=== PATIENT | female | born 1940 | race Caucasian/White ===

== ENCOUNTER 2019-04-15 21:22 | Inpatient (IN) ==
--- OUTSIDE RECORDS SUMMARY | 2019-04-15 21:24 | External Medical Summary | Continuity of Care Document ---
:1940 Author Name Ricardo Mendez Address Unavailable Unavailable , Care Team Providers Name Role Phone Cristy Wills M.D. Unavailable [email or web address] [place] Unavailable Unavailable Assessments Assessed Problems:Cystocele, midlineUterine prolapseArthritisHypertension Hypercholesterolemia Problems Hypercholesterolemia (272.0) (E78.00) Hypertension (401.9) (I10) Arthritis (716.90) (M19.90) Uterine prolapse (618.1) (N81.4) Cystocele, midline (618.01) (N81.11) Allergies and Adverse Reactions No Known Drug Allergies (Allergy) Medications Metoprolol Tartrate 50 MG Oral Tablet Refills: 0 amLODIPine Besylate 5 MG Oral Tablet Refills: 0 Losartan Potassium 100 MG Oral Tablet Refills: 0 Simvastatin 40 MG Oral Tablet Refills: 0 Evista 60 MG Oral Tablet Refills: 0 Procedures History of cataract surgery Status: Comp leted Immunizations Immunizations not documented Family History Mother Family history of cardiac disorder (V17.49) (Z82.49) Status: Active Father Family history of gastric ulcer (V18.59) (Z83.79) Status: Ac tive Sister Family history of malignant neoplasm of breast (V16.3) (Z80. 3) Status: Active natural daughter Family history of malignant melanoma (V16.8) (Z80.8) Status: Active Family history of Status: Active Social History - Smoking Status Never smoker Plan of Treatment Planned Observations Planned Goals not documented Results No Known Results Results not documented Encounters Appointment; Rita Wills M.D. 03-Aug-2017 13:00 Encounter Diagnosis: Problem not documented
[2019-04-15] MEDS ORDERED: SODIUM CHLORIDE 0.9% 500 ML IV ONE (21:34)
[2019-04-15] MEDS ORDERED: DIPHTHERIA/TETANUS/PERTUSSIS 0.5 ML SYR/VIAL IM ONE (21:34)
[2019-04-15] MEDS ORDERED: PIPERACILLIN/TAZOBACTAM 4.5 GM/120 ML BAG IV ONE (21:45)
[2019-04-15] MEDS ORDERED: PIPERACILL/TAZOBAC CONSULT ACTIVE PRN (21:45)
--- NOTE | 2019-04-15 21:50 | Emergency Department Note ---
ED Visit Note Physician Evaluation Note: I have personally evaluated and examined this patient. I agree with assessment and plan of Monet Ray PA-C. Left hand swelling consistent with infection after being on Amox for the previous week. She was bitten by cat on left forearm. She has unknown last tetanus which will be updated. Labs, imaging o rdered/reviewed. Zosyn started and hospitalist consulted. Tate Kauffman MD
[2019-04-15 22:14] LABS: Basophils # (auto) 0.04 K/uL (0-0.2); Basophils % (auto) 0.3 %; Eosinophils # (auto) 0.08 K/uL (0-0.5); Eosinophils % (auto) 0.6 %; Hematocrit (blood only) 35.7 % (37-47); Hemoglobin 12.4 g/dL (12.0-16.0); Immature Granulocytes # (auto) 0.09 K/uL (0.00-0.02); Immature Granulocytes % (auto) 0.7 %; Lymphocytes # (auto) 1.08 K/uL (1.2-3.4); Lymphocytes % (auto) 8.3 %; Mean Corpuscular Hgb Conc 34.7 g/dL (32-36); Mean Corpuscular Volume 92.5 fL (80-100); Mean Platelet Volume 9.4 fL (7.4-10.4); Monocytes # (auto) 1.37 K/uL (0.11-0.59); Monocytes % (auto) 10.6 %; Neutrophils # (auto) 10.29 K/uL (1.4-6.5); Neutrophils % (auto) 79.5 %; Platelet Count 234 K/uL (130-400); RDW Coefficient of Variation 13.1 % (11.5-14.5); RDW Standard Deviation 44.2 fL (36.4-46.3); Red Blood Count 3.86 M/uL (4.2-5.4); White Blood Count 12.95 K/uL (4.8-10.8)
--- NOTE | 2019-04-15 22:24 | Emergency Department Note ---
History of Present Illness General Chief complaint: Hand Injury/Pain Stated complaint: SWOLLEN L HAND History of Present Illness Maximum Pain Intensity: 6 This 78-year-old presents to the ER complaining of left hand pain and swelling Location: Left hand Quality: Throbbing Severity: Moderate Duration: Past few days Timing: Started few days ago after getting scratched and bitten by her cat Context: Pain and redness spread and patient was concerned and came in Modifying factors: better with nothing; worse with activity Patient states her cat excellently scratched and bit her the other day. She states since then the hand is become more red swollen and painful. She has red streaking up the arm. Patient denies of subjective fever and chills. Tetanus is out of date she believes. Patient states she is healthy with no active medical problems. Patient denies chest pain, dyspnea, headache, body aches. Patient also has been working in her garden this week. Home Medications Home Medications Medication Instructions Recorded Confirmed Type amlodipine 5 mg PO QAM 04/15/19 04/15/19 History amoxicillin 500 mg PO TID 04/15/19 04/15/19 History calcium carbonate-vitamin D3 1 cap PO QAM 04/15/19 04/15/19 History [Calcium 600 + D(3)] diphenhydramine-acetaminophen 1 tab PO HS PRN 04/15/19 04/15/19 History [Tylenol PM Extra Strength] losartan 100 mg PO QAM 04/15/19 04/15/19 History metoprolol succinate 25 mg PO HS 04/15/19 04/15/19 History multivit with min-folic acid 200 mcg PO QAM 04/15/19 04/15/19 History [One-A-Day VitaCraves] omega 0-fqd-rus-fish oil [Doerun-3] 1 cap PO QAM 04/15/19 04/15/19 History raloxifene 60 mg PO DAILY 04/15/19 04/15/19 History simvastatin 40 mg PO HS 04/15/19 04/15/19 History Allergies Allergy/AdvReac Type Severity Reaction Status Date / Time No Known Allergies Allergy Unverified 04/15/19 21:38 Past Med/Surg History Medical History No acute medical problems Social History Feels Safe at Home: Yes Smoking Status: Never smoker Review of Systems All systems reviewed & are unremarkable except as noted in HPI & below Physical Exam Vital Signs Vital Signs - 24 hr 04/15/19 21:24 04/15/19 23:01 Temperature 37.4 C Temperature Source Oral Sepsis Recent Fever Within 48 Hours No Sepsis Action Taken by Nursing No Action Required Pulse Rate 116 H Pulse Rate [Finger] 81 Respiratory Rate 18 18 Respiratory Effort / Characteristics Non-Labored Spontaneous Respiratory Depth Normal Respiratory Pattern Regular Blood Pressure 149/82 H Blood Pressure [Left Arm] 124/69 Blood Pressure Mean 104 Blood Pressure Mean [Left Arm] 87 Blood Pressure Position Sitting Pulse Oximetry 94 92 Oxygen Delivery Method Room Air Room Air VITALS: Vitals are noted on the nurse's note and reviewed by myself. Vital signs tachycardic. GENERAL: Pleasant female, in no acute distress, nondiaphoretic, well-developed well-nourished. Skin: The left hand is erythematous and edematous with lymphangitis up to the left AC, scratch brisa to the distal left forearm, the rest of the skin was without rashes, erythema, edema, or bruising. There is no tenting of the skin. Capillary reflex less than 2 seconds. HEAD: Normocephalic atraumatic. EARS: External auditory canals clear EYES: Pupils equal round and reactive to light and accommodation. Conjunctivae without injection, sclerae without icterus. Extraocular movements intact. NOSE: Patent, turbinates without inflammation or discharge. MOUTH: Mucous membranes moist. Pharynx without erythema or exudate. Uvula midline. Airway patent. Tongue does not deviate. NECK: Supple without nuchal rigidity. No lymphadenopathy. No thyromegaly. Cervical spine is nontender. No JVD. HEART: Regular rate and rhythm LUNGS: Clear to auscultation bilaterally without wheezes, rales or rhonchi. No retractions or accessory muscle use. ABDOMEN: Positive bowel sounds x 4. Normal tympanic percussion. Soft, nontender, without masses or organomegaly. Pendleton sign negative. No guarding or rebound tenderness. No CVA tenderness MUSCULOSKELETAL: No muscle atrophy noted. The left hand is warm that is erythematous and edematous with lymphangitis up to the left AC, scratch brisa to the distal left forearm. Left hand is diffusely minimally tender to palpation. Full range of motion of all fingers hand and wrist. Radial pulses +2 equal and present bilaterally. NEURO: Patient was alert and oriented to person place and time. Normal sensation to light and sharp touch. No focal neurological deficits. Course Administered Medications Discontinued Medications Diphtheria/Pertussis/Tetanus Vacc (Adacel) 0.5 ml IM .ONCE ONE Stop: 04/15/19 21:35 Last Admin: 04/15/19 22:22 Dose: 0.5 ml Documented by: [id number] Sodium Chloride (Nss) 500 mls @ 999 mls/hr IV .Q31M ONE Stop: 04/15/19 22:04 Last Infusion: 04/15/19 23:09 Dose: 0 mls/hr Documented by: [id number] Admin: 04/15/19 22:22 Dose: 999 mls/hr Documented by: [id number] Piperacillin Sod/Tazobactam Sod (Zosyn) 4.5 gm in 120 mls @ 240 mls/hr IV NOW ONE Stop: 04/15/19 22:14 Last Infusion: 04/15/19 23:04 Dose: 0 mls/hr Documented by: [id number] Admin: 04/15/19 22:22 Dose: 240 mls/hr Documented by: [id number] Medical Decision Making Medical Records Attestation: I reviewed the patient's medical records. Home Medications Current Medication List: was personally reviewed by me Laboratory Data Attestation: I reviewed the patient's lab results. Result diagrams: 04/15/19 21:54 04/15/19 21:54 Lab Results 04/15/19 04/15/19 04/15/19 Range/Units 21:54 21:54 21:54 WBC 12.95 H (4.8-10.8) K/uL RBC 3.86 L (4.2-5.4) M/uL Hgb 12.4 (12.0-16.0) g/dL Hct 35.7 L (37-47) % MCV 92.5 (80-100) fL MCH 32.1 (25-34) pg MCHC 34.7 (32-36) g/dL RDW Std Deviation 44.2 (36.4-46.3) fL RDW Coeff of Alisson 13.1 (11.5-14.5) % Plt Count 234 (130-400) K/uL MPV 9.4 (7.4-10.4) fL Immature Gran % (Auto) 0.7 % Neut % (Auto) 79.5 % Lymph % (Auto) 8.3 % Bertie % (Auto) 10.6 % Eos % (Auto) 0.6 % Baso % (Auto) 0.3 % Immature Gran # (Auto) 0.09 H (0.00-0.02) K/uL Neut # (Auto) 10.29 H (1.4-6.5) K/uL Lymph # (Auto) 1.08 L (1.2-3.4) K/uL Bertie # (Auto) 1.37 H (0.11-0.59) K/uL Eos # (Auto) 0.08 (0-0.5) K/uL Baso # (Auto) 0.04 (0-0.2) K/uL ESR 80 H (0-21) mm/hr Sodium 137 (136-145) mmol/L Potassium 3.8 (3.5-5.1) mmol/L Chloride 105 (98-107) mmol/L Carbon Dioxide 24 (21-32) mmol/L Anion Gap 8.0 (3-11) BUN 17 (7-18) mg/dl Creatinine 1.26 H (0.6-1.2) mg/dl Est Cr Clr Drug Dosing 29.1 ml/min Est GFR ( Amer) 47.3 Est GFR (Non-Af Amer) 40.8 BUN/Creatinine Ratio 13.7 (10-20) Glucose 174 H (70-99) mg/dl POC Lactic Acid Alvarez (0.90-1.70) mmol/L Calcium 8.7 (8.5-10.1) mg/dl Magnesium 2.1 (1.8-2.4) mg/dl Total Bilirubin 0.6 (0.2-1) mg/dl AST 60 H (15-37) U/L ALT 68 (12-78) U/L Alkaline Phosphatase 134 H (45-117) U/L C-Reactive Protein 16.80 H (0-0.29) mg/dl Total Protein 7.3 (6.4-8.2) gm/dl Albumin 3.0 L (3.4-5.0) gm/dl Globulin 4.3 H (2.5-4.0) gm/dl Albumin/Globulin Ratio 0.7 L (0.9-2) TSH 2.440 (0.300-4.500) uIu/ml Urine Color Urine Appearance (Clear) Urine pH (4.5-7.5) Ur Specific [place] (1.000-1.030) Urine Protein (Negative) Urine Glucose (UA) (Negative) Urine Ketones (Negative) Urine Blood (Negative) Urine Nitrite (Negative) Urine Bilirubin (Negative) Urine Urobilinogen (Negative) Ur Leukocyte Esterase (Negative) Urine WBC (Auto) (0-5) /hpf Urine RBC (Auto) (0-4) /hpf U Hyaline Cast (Auto) (0-5) /lpf U Epithel Cells (Auto) (0-5) /lpf Urine Bacteria (Auto) (Negative) 04/15/19 04/15/19 Range/Units 21:54 Unknown WBC (4.8-10.8) K/uL RBC (4.2-5.4) M/uL Hgb (12.0-16.0) g/dL Hct (37-47) % MCV (80-100) fL MCH (25-34) pg MCHC (32-36) g/dL RDW Std Deviation (36.4-46.3) fL RDW Coeff of Alisson (11.5-14.5) % Plt Count (130-400) K/uL MPV (7.4-10.4) fL Immature Gran % (Auto) % Neut % (Auto) % Lymph % (Auto) % Bertie % (Auto) % Eos % (Auto) % Baso % (Auto) % Immature Gran # (Auto) (0.00-0.02) K/uL Neut # (Auto) (1.4-6.5) K/uL Lymph # (Auto) (1.2-3.4) K/uL Bertie # (Auto) (0.11-0.59) K/uL Eos # (Auto) (0-0.5) K/uL Baso # (Auto) (0-0.2) K/uL ESR (0-21) mm/hr Sodium (136-145) mmol/L Potassium (3.5-5.1) mmol/L Chloride (98-107) mmol/L Carbon Dioxide (21-32) mmol/L Anion Gap (3-11) BUN (7-18) mg/dl Creatinine (0.6-1.2) mg/dl Est Cr Clr Drug Dosing ml/min Est GFR ( Amer) Est GFR (Non-Af Amer) BUN/Creatinine Ratio (10-20) Glucose (70-99) mg/dl POC Lactic Acid Alvarez 1.33 (0.90-1.70) mmol/L Calcium (8.5-10.1) mg/dl Magnesium (1.8-2.4) mg/dl Total Bilirubin (0.2-1) mg/dl AST (15-37) U/L ALT (12-78) U/L Alkaline Phosphatase (45-117) U/L C-Reactive Protein (0-0.29) mg/dl Total Protein (6.4-8.2) gm/dl Albumin (3.4-5.0) gm/dl Globulin (2.5-4.0) gm/dl Albumin/Globulin Ratio (0.9-2) TSH (0.300-4.500) uIu/ml Urine Color Yellow Urine Appearance Clear (Clear) Urine pH 5.0 (4.5-7.5) Ur Specific [place] 1.014 (1.000-1.030) Urine Protein Negative (Negative) Urine Glucose (UA) Negative (Negative) Urine Ketones Negative (Negative) Urine Blood Negative (Negative) Urine Nitrite Negative (Negative) Urine Bilirubin Negative (Negative) Urine Urobilinogen Negative (Negative) Ur Leukocyte Esterase Trace H (Negative) Urine WBC (Auto) 5-10 H (0-5) /hpf Urine RBC (Auto) 0-4 (0-4) /hpf U Hyaline Cast (Auto) 0 (0-5) /lpf U Epithel Cells (Auto) 10-20 H (0-5) /lpf Urine Bacteria (Auto) Negative (Negative) Imaging Data Attestation: I personally reviewed and interpreted this imaging study as follows: Blood Pressure Blood Pressure Findings: Elevated blood pressure Blood Pressure Disposition: Referred to patients primary care provider [facility] Narrative Prior records reviewed and summarized as above. Triage Nursing notes reviewed. Additional history obtained from family. The patient's history was concerning for swelling and redness of the skin. Differential diagnosis: Etiologies such as cat scratch disease, Pseudomonas, cellulitis, abscess, MRSA infection, DVT, necrotizing fasciitis, dermatitis, drug eruption, as well as others were entertained.. Physical examination: The physical examination was consistent with cellulitis ER treatment provided: Zosyn On reassessment the patient felt better. Diagnostics interpreted by me: The labs revealed leukocytosis, elevated inflammatory markers Imaging studies: XR hand LT min 3V routine CLINICAL HISTORY: pain/swelling pain COMPARISON: None. DISCUSSION: Considerable degenerative change of the interphalangeal as well as first carpometacarpal joint. No evidence for a lytic or blastic process. No evidence for posttraumatic bony change. Dorsal soft tissue edema. IMPRESSION: 1. Dorsal soft tissue edema. 2. Considerable degenerative change. 3. No acute bony normality. The above report was generated using voice recognition software. It may contain grammatical, syntax or spelling errors. Electronically signed by: Brisa Wellington M.D. 04/15/2019 10:22 PM US venous doppler UE LT HISTORY: Pain. Edema. pain/swelling COMPARISON STUDY: None. FINDINGS: The internal jugular vein is patent. There is normal flow within the subclavian vein. There is normal flow and compressibility within the left axillary, basilic, brachial, radial, ulnar, and visualized cephalic veins. IMPRESSION: No DVT within the upper extremity. The above report was generated using voice recognition software. It may contain grammatical, syntax or spelling errors. Electronically signed by: Brisa Wellington M.D. 04/15/2019 10:59 PM Consultation: A consultation was placed with Dr. Pololck hospitalist. The case was discussed and diagnostics were reviewed. The patient was evaluated in the ER for further treatment. This appears to be isolated cellulitis. This is quite extensive. Patient also has a history of cat scratch. Patient started broad-spectrum antibiotics. Patient had a leukocytosis and elevated inflammatory markers. Patient is agreeable treatment plan of admission. Tetanus is given. No elevation in lactic acid. By the evaluation outlined above emergent etiologies such as abscess, necrotizing fasciitis, DVT, as well as others were deemed relatively unlikely. The pt informed about the findings as listed above. All questions were answered and pleased with the treatment. Case reviewed with my attending The chart was completed utilizing [employer] voice recognition software. Grammatical errors, random word insertions, pronoun errors, and incomplete sentences are an occassional consequence of this system due to software limitations, ambient noise, and hardware issues. Any formal questions or concerns about the content, text, or information contained within the body of this dictation should be directly addressed to the physician human resources executive assistant for clarification. Impression & Plan Cellulitis of hand, Cat bite Discharge Plan Visit Data Chief Complaint: Hand Injury/Pain Stated Complaint: SWOLLEN L HAND ED Provider: Tate Kauffman ED Midlevel Provider: Nina Ray Discharge Problem: Cellulitis of hand, Cat bite Patient Disposition: Being Evaluated by Hospitalist Condition: Good Forms Stand Alone Forms: My [facility] [employer] Prescriptions Prescriptions: No Action amoxicillin 500 mg capsule 500 mg PO TID RF: 0 simvastatin 40 mg tablet 40 mg PO HS RF: 0 raloxifene 60 mg tablet 60 mg PO DAILY RF: 0 metoprolol succinate 25 mg tablet extended release 24 hr 25 mg PO HS RF: 0 diphenhydramine-acetaminophen [Tylenol PM Extra Strength] 25-500 mg Tablet 1 tab PO HS PRN (Reason: Sleep) RF: 0 losartan 100 mg tablet 100 mg PO QAM RF: 0 amlodipine 5 mg tablet 5 mg PO QAM RF: 0 Calcium 600 + D(3) 600 mg calcium- 200 unit Capsule 1 cap PO QAM RF: 0 One-A-Day VitaCraves 200 mcg Tablet,Chewable 200 mcg PO QAM RF: 0 Doerun-3 350 mg-235 mg- 90 mg-597 mg Capsule,Delayed Release(Dr/Ec) 1 cap PO QAM RF: 0 Referrals Referrals: Nilesh Damian [Primary Care Provider] -
[2019-04-15 22:29] LABS: BUN Creatinine Ratio 13.7 (10-20); Calcium 8.7 mg/dl (8.5-10.1); Creatinine Clr Calc Pharmacy 29.1 ml/min; Est GFR (African American) 47.3; Est GFR (Non-African American) 40.8; Potassium 3.8 mmol/L (3.5-5.1)
[2019-04-15 22:32] LABS: Albumin Globulin Ratio 0.7 (0.9-2); Bilirubin,Total 0.6 mg/dl (0.2-1); C Reactive Protein 16.8 mg/dl (0-0.29); Globulin 4.3 gm/dl (2.5-4.0); Total Protein 7.3 gm/dl (6.4-8.2)
--- NOTE | 2019-04-15 23:01 | Ultrasound Report ---
US venous doppler UE LT HISTORY: Pain. Edema. pain/swelling COMPARISON STUDY: None. FINDINGS: The internal jugular vein is patent. There is normal flow within the subclavian vein. There is normal flow and compressibility within the left axillary, basilic, brachial, radial, ulnar, and v isualized cephalic veins. IMPRESSION: No DVT within the upper extremity. The above report was generated using voice recognition software. It may contain grammatical, syntax or spelling errors. Electronically signed by: Eugenio Wellington M.D. 04/15/2019 10:59 PM
[2019-04-15 23:30] LABS: Magnesium 2.1 mg/dl (1.8-2.4)
[2019-04-15] MEDS ORDERED: DOXYCYCLINE HYCLATE 100 MG in DEXTROSE 5% 100 ML IV STA (23:34)
[2019-04-15 23:41] LABS: Appearance Urine Clear (Clear); Bilirubin Urine Negative (Negative); Blood Urine Negative (Negative); Color Urine Yellow; Glucose Urine UA Negative (Negative); Ketones Urine Negative (Negative); Leukocyte Esterase Urine Trace (Negative); Nitrite Urine Negative (Negative); Protein Urine Negative (Negative); Specific Gravity Urine 1.014 (1.000-1.030); Urobilinogen Urine Negative (Negative)
[2019-04-15 23:55] LABS: Bacteria Urine Automated Negative (Negative); Cast Urine Automated 0 /lpf (0-5); RBC Urine Automated 0-4 /hpf (0-4)
--- NOTE | 2019-04-16 00:05 | History & Physical Report ---
Date of Service April 16, 2019 Assessment & Plan (1) Sepsis: Secondary to cellulitis secondary to cat bite Hypertension, stable Hyperlipidemia on statin Rx CRI, creatinine at baseline Prediabetes as per patient, recent outpatient hemoglobin A1c of 5.9 last 09/2018 GMF Cultures, IV Unasyn Local measures for cellulitis Update hemoglobin A1c DVT prophylaxis. Heparin subcu Full code History of Present Illness Chief Complaint: Left forearm swelling Primary Care Provider: Nilesh Damian History obtained from patient, family, and records. Medical history significant for hypertension, hyperlipidemia, CRI (baseline creatinine 1.3-1.4), prediabetes, osteoporosis. Few days ago patient bit on the left forearm by her pet cat. Subsequent painful swelling noted to be spreading. No chest pain, no S OB, no fever, no chills. Patient was seen at an urgent care center in [place] few days ago. No antibiotics prescribed for possible "tendinitis." Patient brought to the ER by for worsening swelling. IV Zosyn given at the emergency room. 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, lives with Allergies Allergy/AdvReac Type Severity Reaction Status Date / Time No Known Allergies Allergy Unverified 04/15/19 21:38 Home Medications Home Medications Medication Instructions Recorded Confirmed Type amlodipine 5 mg PO QAM 04/15/19 04/15/19 History amoxicillin 500 mg PO TID 04/15/19 04/15/19 History calcium carbonate-vitamin D3 1 cap PO QAM 04/15/19 04/15/19 History [Calcium 600 + D(3)] diphenhydramine-acetaminophen 1 tab PO HS PRN 04/15/19 04/15/19 History [Tylenol PM Extra Strength] losartan 100 mg PO QAM 04/15/19 04/15/19 History metoprolol succinate 25 mg PO HS 04/15/19 04/15/19 History multivit with min-folic acid 200 mcg PO QAM 04/15/19 04/15/19 History [One-A-Day VitaCraves] omega 5-lms-ugx-fish oil [[place]-3] 1 cap PO QAM 04/15/19 04/15/19 History raloxifene 60 mg PO DAILY 04/15/19 04/15/19 History simvastatin 40 mg PO HS 04/15/19 04/15/19 History Past Med/Surg History Medical History No acute medical problems Social History Preferred Language: [place] Communication Ability: Effective Velvet Steamer Required: No Beliefs That Will Affect Care: None Current Living Situation: Spouse Other Information That Helps Us Care for You: No Feels Safe at Home: Yes Safety Concerns: Feels Safe At This Time Smoking Status: Never smoker Do You Dip or Chew Tobacco: No ; Second Hand Exposure: No ; Hx Alcohol Use: Yes Hx Substance Use: No Review of Systems Review of Systems: As per HPI, all 10 systems reviewed, all other ROS negative Physical Exam Physical Exam: GENERAL: Comfortable, pleasant, looks younger for stated age, no respiratory distress SKIN: Normal color, warm HEENT: Bespectacled, [place] palpebral conjunctivae, no ptosis, dry buccal mucosa NECK : Supple, no tenderness CHEST : CTA, no tenderness HEART : RRR, no obvious murmurs ABDOMEN: Some distention, nontender EXTREMITIES : two fang bite brisa noted on left forearm with surrounding swelling, minimal tenderness, no other conspicuous deformities noted NEUROLOGIC : Coherent, no facial asymmetry, no other gross focality Results & Data Vital Signs (Past 12 Hours) Vital Signs Temp Pulse Pulse Resp BP BP Pulse Ox 04/15/19 23:01 81 18 124/69 92 04/15/19 21:24 37.4 C 116 H 18 149/82 H 94 Laboratory Results Laboratory Results WBC 12.95 K/uL (4.8-10.8) H 04/15/19 21:54 RBC 3.86 M/uL (4.2-5.4) L 04/15/19 21:54 Hgb 12.4 g/dL (12.0-16.0) 04/15/19 21:54 Hct 35.7 % (37-47) L 04/15/19 21:54 MCV 92.5 fL (80-100) 04/15/19 21:54 MCH 32.1 pg (25-34) 04/15/19 21:54 MCHC 34.7 g/dL (32-36) 04/15/19 21:54 RDW Std Deviation 44.2 fL (36.4-46.3) 04/15/19 21:54 RDW Coeff of Alisson 13.1 % (11.5-14.5) 04/15/19 21:54 Plt Count 234 K/uL (130-400) 04/15/19 21:54 MPV 9.4 fL (7.4-10.4) 04/15/19 21:54 Immature Gran % (Auto) 0.7 % 04/15/19 21:54 Neut % (Auto) 79.5 % 04/15/19 21:54 Lymph % (Auto) 8.3 % 04/15/19 21:54 [place] % (Auto) 10.6 % 04/15/19 21:54 Eos % (Auto) 0.6 % 04/15/19 21:54 Baso % (Auto) 0.3 % 04/15/19 21:54 Immature Gran # (Auto) 0.09 K/uL (0.00-0.02) H 04/15/19 21:54 Neut # (Auto) 10.29 K/uL (1.4-6.5) H 04/15/19 21:54 Lymph # (Auto) 1.08 K/uL (1.2-3.4) L 04/15/19 21:54 [place] # (Auto) 1.37 K/uL (0.11-0.59) H 04/15/19 21:54 Eos # (Auto) 0.08 K/uL (0-0.5) 04/15/19 21:54 Baso # (Auto) 0.04 K/uL (0-0.2) 04/15/19 21:54 ESR 80 mm/hr (0-21) H 04/15/19 21:54 Sodium 137 mmol/L (136-145) 04/15/19 21:54 Potassium 3.8 mmol/L (3.5-5.1) 04/15/19 21:54 Chloride 105 mmol/L (98-107) 04/15/19 21:54 Carbon Dioxide 24 mmol/L (21-32) 04/15/19 21:54 Anion Gap 8.0 (3-11) 04/15/19 21:54 BUN 17 mg/dl (7-18) 04/15/19 21:54 Creatinine 1.26 mg/dl (0.6-1.2) H 04/15/19 21:54 Est Cr Clr Drug Dosing 29.1 ml/min 04/15/19 21:54 Est GFR ( Amer) 47.3 04/15/19 21:54 Est GFR (Non-Af Amer) 40.8 04/15/19 21:54 BUN/Creatinine Ratio 13.7 (10-20) 04/15/19 21:54 Glucose 174 mg/dl (70-99) H 04/15/19 21:54 POC Lactic Acid Alvarez 1.33 mmol/L (0.90-1.70) 04/15/19 21:54 Calcium 8.7 mg/dl (8.5-10.1) 04/15/19 21:54 Magnesium 2.1 mg/dl (1.8-2.4) 04/15/19 21:54 Total Bilirubin 0.6 mg/dl (0.2-1) 04/15/19 21:54 AST 60 U/L (15-37) H 04/15/19 21:54 ALT 68 U/L (12-78) 04/15/19 21:54 Alkaline Phosphatase 134 U/L (45-117) H 04/15/19 21:54 C-Reactive Protein 16.80 mg/dl (0-0.29) H 04/15/19 21:54 Total Protein 7.3 gm/dl (6.4-8.2) 04/15/19 21:54 Albumin 3.0 gm/dl (3.4-5.0) L 04/15/19 21:54 Globulin 4.3 gm/dl (2.5-4.0) H 04/15/19 21:54 Albumin/Globulin Ratio 0.7 (0.9-2) L 04/15/19 21:54 TSH 2.440 uIu/ml (0.300-4.500) 04/15/19 21:54 Urine Color Yellow 04/15/19 Unknown Urine Appearance Clear (Clear) 04/15/19 Unknown Urine pH 5.0 (4.5-7.5) 04/15/19 Unknown Ur Specific [place] 1.014 (1.000-1.030) 04/15/19 Unknown Urine Protein Negative (Negative) 04/15/19 Unknown Urine Glucose (UA) Negative (Negative) 04/15/19 Unknown Urine Ketones Negative (Negative) 04/15/19 Unknown Urine Blood Negative (Negative) 04/15/19 Unknown Urine Nitrite Negative (Negative) 04/15/19 Unknown Urine Bilirubin Negative (Negative) 04/15/19 Unknown Urine Urobilinogen Negative (Negative) 04/15/19 Unknown Ur Leukocyte Esterase Trace (Negative) H 04/15/19 Unknown Urine WBC (Auto) 5-10 /hpf (0-5) H 04/15/19 Unknown Urine RBC (Auto) 0-4 /hpf (0-4) 04/15/19 Unknown U Hyaline Cast (Auto) 0 /lpf (0-5) 04/15/19 Unknown U Epithel Cells (Auto) 10-20 /lpf (0-5) H 04/15/19 Unknown Urine Bacteria (Auto) Negative (Negative) 04/15/19 Unknown Diagnostic Findings Ultrasound venous left upper extremity: No DVT within the upper extremity. Left hand x-ray: 1. Dorsal soft tissue edema. 2. Considerable degenerative change. 3. No acute bony normality.
[2019-04-16] MEDS ORDERED: PROMETHAZINE HCL 12.5 MG in SODIUM CHLORIDE 0.9% 50 ML IV PRN (00:55)
[2019-04-16] MEDS ORDERED: TIZANIDINE HCL 4 MG TABLET PO STA (00:55)
[2019-04-16] MEDS ORDERED: LACTATED RINGER'S 1,000 ML IV ONE (00:55)
[2019-04-16] MEDS: TRAMADOL HCL 50 MG TABLET PO PRN ×2 (01:15→22:18)
[2019-04-16] MEDS ORDERED: AMPICILLIN/SULBACTAM CONSULT ACTIVE PRN (02:36)
[2019-04-16] MEDS: ACETAMINOPHEN 325 MG TAB PO PRN ×2 (05:41→23:13)
[2019-04-16] MEDS ORDERED: AMPICILLIN/SULBACTAM SOD 3,000 MG in 0.9 % SODIUM CHLORIDE 100 ML IV SCH (06:00)
[2019-04-16 06:52] LABS: Basophils # (auto) 0.03 K/uL (0-0.2); Basophils % (auto) 0.3 %; Eosinophils # (auto) 0.04 K/uL (0-0.5); Eosinophils % (auto) 0.3 %; Hematocrit (blood only) 32.4 % (37-47); Immature Granulocytes # (auto) 0.05 K/uL (0.00-0.02); Immature Granulocytes % (auto) 0.4 %; Lymphocytes # (auto) 0.92 K/uL (1.2-3.4); Lymphocytes % (auto) 7.7 %; Mean Corpuscular Volume 92.3 fL (80-100); Mean Platelet Volume 9.4 fL (7.4-10.4); Monocytes # (auto) 1.08 K/uL (0.11-0.59); Monocytes % (auto) 9.1 %; Neutrophils # (auto) 9.81 K/uL (1.4-6.5); Neutrophils % (auto) 82.2 %; Platelet Count 178 K/uL (130-400); RDW Coefficient of Variation 13.2 % (11.5-14.5); RDW Standard Deviation 44.3 fL (36.4-46.3); Red Blood Count 3.51 M/uL (4.2-5.4); White Blood Count 11.93 K/uL (4.8-10.8)
[2019-04-16 07:01] LABS: INR 1.1 (0.9-1.1); Prothrombin Time 10.9 Seconds (9.0-12.0)
[2019-04-16 07:27] LABS: Calcium 8.1 mg/dl (8.5-10.1); Creatinine Clr Calc Pharmacy 32.2 ml/min; Est GFR (African American) 53.3; Potassium 3.8 mmol/L (3.5-5.1)
[2019-04-16] MEDS ORDERED: HYDROmorphone INJ 0.5 MG/0.5 ML SYR IV STA (07:43)
--- NOTE | 2019-04-16 08:17 | Hospitalist Progress Note ---
Date of Service April 16, 2019 Assessment & Plan (1) Cellulitis of hand: Cellulitis of left hand likely due to cat bite and with suspected sepsis on admission -Patient reports that the her cat had bit her on 04/19/19 and then subsequently in the next couple days, the left had with more swelling. She also reports that she had been taking amoxicillin 500 mg TID since Tuesday04/17/19 because of previously diagnosed urinary tract infection. When patient was admitted to the hospital on 04/15/19 she was initially given Zosyn in the ED and then switched to Ampicillin by admitting hospitalist medicine physician. TDAP was also given by ED provider. As per the admitting physician note there was concern for sepsis because of initial tachycardia of 116 and white blood cell count above 10,000. Patient given IV fluids. patient has been afebrile in the hospital and reports she is afebrile at home. -on exam by daytime hospitalist on 04/16/19, patient remains afebrile and hemodynamically stable. She does have left hand swelling with swelling go up the left distal ulnar/radius area. There is a small healed bite brisa where patient's cat had bit her at home in the ulnar/radius area. -Patient has mobility of her fingers and hands with some limitation fo range of motion due to the swelling. Have discussed with patient about continuing medical management with antibiotics and ice but also advised that orthopedic consult requested in case the swelling gets worse despite antibiotic and conservative measures. Patient agrees to be evaluated by orthopedics -will continue IV antibiotics as IV Ampicillin q12 hours; a recommended treatment regimen for lymphadenitis from Cat scratch disease is Azithromycin (500 mg PO on day 1, followed by 250 mg PO for four days), and so will start the first dose azithromycin regimen on 04/16/19 -follow blood cultures Previous urinary tract infection as outpatient -urine analysis is negative, continue treatment with antibiotic of left upper extremity as above Hypertension -blood pressure stable -monitor off IV fluids -continue home dose metoprolol and amlodipine -hold off home dose losartan and replace with HCTZ 25 mg daily for now to see if some diuretic may relieve some fluid retention of the left hand as well as function as blood pressure medication -continue home dose statin acute kidney injury -creatinine downtrended with IV fluids Prediabetes as per patient -recent outpatient hemoglobin A1c of 5.9 last 09/2018 -follow HbA1c -diabetic diet Alfred [phone] DVT prophylaxis. Heparin subcu Subjective She reports that the her cat had bit her on 04/19/19 and then subsequ ently in the next couple days, the left had with more swelling. She also reports that she had been taking amoxicillin 500 mg TID since Tuesday04/17/19 because of previously diagnosed urinary tract infection. When patient was admitted to the hospital on 04/15/19 she was initially given Zosyn in the ED and then switched to Ampicillin by admitting hospitalist medicine physician. TDAP was also given by ED provider. As per the admitting physician note there was concern for sepsis because of initial tachycardia of 116 and white blood cell count above 10,000. Patient given IV fluids. patient has been afebrile in the hospital and reports she is afebrile at home. on exam by daytime hospitalist on 04/16/19, patient remains afebrile and hemodynamically stable. She does have left hand swelling with swelling go up the left distal ulnar/radius area. There is a small healed bite brisa where patient's cat had bit her at home in the ulnar/radius area. Patient has mobility of her fingers and hands with some limitation fo range of motion due to the swelling. Have discussed with patient about continuing medical management with antibiotics and ice but also advised that orthopedic consult requested in case the swelling gets worse despite antibiotic and conservative measures. Patient agrees to be evaluated by orthopedics Patient denies fever. no chest pain. no shortness of breath. no headache. no d izziness. no current urinary tract symptoms at this time Physical Exam Constitutional: comfortable Eyes: PERRL, conjunctivae normal, anicteric sclerae EOM intact bilaterally ENMT: external ear and nose normal, oropharynx normal Neck: trachea midline, no thyromegaly Respiratory: normal respiratory effort, lungs clear to auscultation Gastrointestinal (Abdomen): normal bowel sounds, soft, nontender, no hepatosplenomegaly Musculoskeletal: left hand swelling with swelling go up the left distal ulnar/radius area. There is a small healed bite brisa where patient's cat had bit her at home in the ulnar/radius area Results & Data Vital Signs (Past 12 Hours) Vital Signs Temp Pulse Pulse Resp BP BP BP 04/16/19 06:37 37.0 C 101 H 21 127/77 04/16/19 00:45 36.7 C 104 H 16 131/84 04/15/19 23:01 81 18 124/69 04/15/19 21:24 37.4 C 116 H 18 149/82 H Pulse Ox 04/16/19 06:37 90 04/16/19 00:45 95 04/15/19 23:01 92 04/15/19 21:24 94
[2019-04-16] MEDS ORDERED: AZITHROMYCIN 250 MG TAB PO STA (08:44)
[2019-04-16] MEDS: hydroCHLOROthiazide 25 MG TAB PO SCH (08:58)
[2019-04-16] MEDS: HEPARIN SOD 5,000 UNIT/0.5 ML VIAL SQ SCH ×3 (08:58→20:36)
[2019-04-16] MEDS: CEROVITE ADV FORMULA TAB PO SCH (08:59)
[2019-04-16] MEDS: SENNA 8.6 MG TAB PO SCH (08:59)
[2019-04-16] MEDS: AMLODIPINE BESYLATE 5 MG TAB PO SCH (09:00)
[2019-04-16] MEDS ORDERED: LOSARTAN POTASSIUM 50 MG TAB PO SCH (09:00)
[2019-04-16 10:03] LABS: Estimated Average Glucose 120 mg/dl; Hemoglobin A1C 5.8 % (4.5-5.6)
--- NOTE | 2019-04-16 13:27 | Orthopedic Consultation ---
Date of Consultation April 16, 2019 Assessment & Plan (1) Cellulitis of hand: Continue IV antibiotics for now. When seen this morning she was not quite 12 hours after the start of IV antibiotics but already she stated that she had much less erythema and heat to the left hand. An ultrasound was done last night to rule out DVT. We will plan to get a nonvascular ultrasound to rule out fluid collection in the dorsum of the hand. We will reassess after she is had at least 24 hours of IV antibiotics. We will make her n.p.o. after midnight in case she has worsening symptoms. If there is a question of fluid collection along the dorsum of the wrist or the wrist, MRI may be needed. History of Present Illness Reason for Consultation: Infection left hand/upper extremity Attending Physician: Roderick Padilla MD History of Present Illness Patient is a 78-year-old white female who states that last her cat bit her in the forearm on the left upper extremity. She states that the cat was being pseudo-playful as she was trying to pick things about the floor and then ended up biting her. She states that this is happened in the past before but has never led to infection. She states that it felt like he was getting better after a day or so however she began noticing increased swelling in her hand that did not go away. She began having pain in the hand and wrist and somewhat in the forearm. This continued to worsen to the point where she could not sleep at night no matter what position she held the hand in. She decided to come into the emergency room last night to be seen. She denies any fevers or chills at home. No nausea or vomiting. She began developing erythema over the dorsum of the hand and with the increased swelling. She was seen by the staff in the emergency room and it was felt that she should be admitted for IV antibiotics. She was admitted by [facility] Hospitalist service and we have been asked to see her. Of note, the patient had been taking amoxicillin for a urinary tract infection prior to admission. Allergies Allergy/AdvReac Type Severity Reaction Status Date / Time No Known Allergies Allergy Unverified 04/15/19 21:38 Home Medications Home Medications Medication Instructions Recorded Confirmed Type amlodipine 5 mg PO QAM 04/15/19 04/15/19 History amoxicillin 500 mg PO TID 04/15/19 04/15/19 History calcium carbonate-vitamin D3 1 cap PO QAM 04/15/19 04/15/19 History [Calcium 600 + D(3)] diphenhydramine-acetaminophen 1 tab PO HS PRN 04/15/19 04/15/19 History [Tylenol PM Extra Strength] losartan 100 mg PO QAM 04/15/19 04/15/19 History metoprolol succinate 25 mg PO HS 04/15/19 04/15/19 History multivit with min-folic acid 200 mcg PO QAM 04/15/19 04/15/19 History [One-A-Day VitaCraves] omega 3-owr-nhy-fish oil [Woolford-3] 1 cap PO QAM 04/15/19 04/15/19 History raloxifene 60 mg PO DAILY 04/15/19 04/15/19 History simvastatin 40 mg PO HS 04/15/19 04/15/19 History Patient History Medical History Hypertension No acute medical problems Prediabetes Social History Preferred Language: Albanian Communication Ability: Effective 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 These are scabbed over and not actively bleeding or draining. She has no major erythema of the forearm at this time and has a slight amount of erythema to the dorsum of the hand. She has moderate swelling of the dorsum of the hand right now. She is mildly tender on palpation over the dorsum of the hand and has a little bit more pain on palpation of the left wrist. No scratches or bite hickey noted on the volar aspect of the arm. She has some decreased range of motion of her fingers and cannot make a complete fist due to swelling. She states with flexing her thumb she has some very mild discomfort. Passive flexion of all fingers does not cause moderate to severe pain. Passive extension of all the fingers does not cause any pain at this time. He does have decreased range of motion of her wrist which she states is mild to moderately painful. No overt swelling of the forearm at this time. Palmar aspect of the hand does not appear to be affected. She has good capillary refill at this time which is less than 2 seconds. She has good sensation in the fingers. She has no pain at the left elbow or left shoulder. No other complaints of the upper extremities,or lower extremities. s he does complain of some neck pain which she has had over the last several days of which she attributes to poor sleeping position because of her hand. She has no overt tenderness on palpation but range of motion is somewhat limited rotationally as well as with extension. Flexion appears to be within normal limits. She has no radicular symptoms at this time. Results & Data Vital Signs (Past 12 Hours) Vital Signs Temp Pulse Resp BP Pulse Ox 04/16/19 11:00 37.0 C 92 H 18 129/87 91 04/16/19 06:37 37.0 C 101 H 21 127/77 90 Diagnostic Findings [place], [place] [phone] XRay Report Patient: JESUS JOYA EAdmit Date: 04/15/19 MR#: [id number] MCMAHON Acct ID:[id number]: Date: 1940[facility] Zip: [place] [address] Age: 78Location: ED Sex: F Room/Bed: Att Phy: Diagnosis: SWOLLEN L HAND Mckenzie Phy: Nilesh Damian M.D.Service Date: 04/15/19 [facility] Phy: Interpreting Phy: Brisa Wellington MD Admit Phy: Ordering Phy: Nina Ray ., SCAR cc: ~ XR hand LT min 3V routine CLINICAL HISTORY: pain/swelling pain COMPARISON: None. DISCUSSION: Considerable degenerative change of the interphalangeal as well as first carpometacarpal joint. No evidence for a lytic or blastic process. No evidence for posttraumatic bony change. Dorsal soft tissue edema. IMPRESSION: 1. Dorsal soft tissue edema. 2. Considerable degenerative change. 3. No acute bony normality.
[2019-04-16] MEDS: AMPICILLIN/SULBACTAM SOD 3,000 MG in 0.9 % SODIUM CHLORIDE 100 ML IV SCH ×3 (13:51→23:13)
--- NOTE | 2019-04-16 15:14 | Ultrasound Report ---
US extremity nonvascular CLINICAL HISTORY: Left Hand/wrist r/o fluid collection COMPARISON STUDY: No previous studies for comparison. FINDINGS: Soft tissue edematous change dorsal to the wrist. No evidence for abscess or collection. IMPRESSION: Dorsal soft tissue edema. No evidence for abscess or collection. The above report was generated using voice recognition software. It may contain grammatical, syntax or spelling errors. Electronically signed by: Eugenio Wellington M.D. 04/16/2019 3:13 PM
[2019-04-16] MEDS: OXYCODONE HCL IR 5 MG TAB (IMMEDIATE RELEASE) PO PRN (18:08)
[2019-04-16] MEDS: METOPROLOL SUCC 25MG EXT REL TAB PO SCH (20:35)
[2019-04-16] MEDS: SIMVASTATIN 40 MG TAB PO SCH (20:36)
[2019-04-17] MEDS: AMPICILLIN/SULBACTAM SOD 3,000 MG in 0.9 % SODIUM CHLORIDE 100 ML IV SCH ×4 (05:55→23:47)
[2019-04-17] MEDS: HEPARIN SOD 5,000 UNIT/0.5 ML VIAL SQ SCH ×3 (05:56→21:58)
[2019-04-17] MEDS: OXYCODONE HCL IR 5 MG TAB (IMMEDIATE RELEASE) PO PRN ×3 (06:01→23:47)
[2019-04-17 06:32] LABS: Basophils # (auto) 0.03 K/uL (0-0.2); Basophils % (auto) 0.3 %; Eosinophils # (auto) 0.06 K/uL (0-0.5); Eosinophils % (auto) 0.5 %; Hematocrit (blood only) 32.6 % (37-47); Hemoglobin 11.1 g/dL (12.0-16.0); Immature Granulocytes # (auto) 0.05 K/uL (0.00-0.02); Immature Granulocytes % (auto) 0.4 %; Lymphocytes # (auto) 1.07 K/uL (1.2-3.4); Lymphocytes % (auto) 9.6 %; Mean Corpuscular Volume 92.9 fL (80-100); Mean Platelet Volume 9.4 fL (7.4-10.4); Monocytes # (auto) 1.08 K/uL (0.11-0.59); Monocytes % (auto) 9.7 %; Neutrophils % (auto) 79.5 %; Platelet Count 195 K/uL (130-400); RDW Coefficient of Variation 13.4 % (11.5-14.5); RDW Standard Deviation 44.8 fL (36.4-46.3); Red Blood Count 3.51 M/uL (4.2-5.4); White Blood Count 11.19 K/uL (4.8-10.8)
[2019-04-17 07:04] LABS: Albumin Level 2.5 gm/dl (3.4-5.0); BUN Creatinine Ratio 13.1 (10-20); Calcium 8.6 mg/dl (8.5-10.1); Creatinine Clr Calc Pharmacy 31.9 ml/min; Est GFR (African American) 52.8; Est GFR (Non-African American) 45.5; Potassium 3.4 mmol/L (3.5-5.1)
[2019-04-17 07:15] LABS: Albumin Globulin Ratio 0.6 (0.9-2); Bilirubin,Total 1.1 mg/dl (0.2-1); Globulin 4.4 gm/dl (2.5-4.0); Total Protein 6.9 gm/dl (6.4-8.2)
[2019-04-17] MEDS ORDERED: POTASSIUM CHLORIDE 20 MEQ TABCR PO STA (07:19)
[2019-04-17] MEDS: AMLODIPINE BESYLATE 5 MG TAB PO SCH (08:17)
[2019-04-17] MEDS: CEROVITE ADV FORMULA TAB PO SCH (08:17)
[2019-04-17] MEDS: AZITHROMYCIN 250 MG TAB PO SCH (08:18)
[2019-04-17] MEDS: hydroCHLOROthiazide 25 MG TAB PO SCH (08:18)
[2019-04-17] MEDS: SENNA 8.6 MG TAB PO SCH (08:18)
--- NOTE | 2019-04-17 11:34 | Orthopedic Progress Note ---
Date of Service April 17, 2019 Assessment & Plan (1) Cellulitis of hand: Continue IV antibiotics at this time. Improvement but not overwhelmingly so. With the continued pain in the left wrist with minimal improvement, we will plan to order an MRI to rule out septic joint. Continue n.p.o. status Subjective Patient currently walking out of the bathroom when entering the room. She is over 24 hours of IV antibiotics and currently states that she feels a little bit better with the left hand but not an overall great improvement. The biggest portion of it is that her wrist has not improved significantly. No new complaints. She does not feel that the swelling has gone down that much however I can see that it has gone down a little bit to the point that that there is some slight wrinkling to the skin on the dorsum of the hand. Physical Exam Physical Exam: Mild swelling over the dorsum of the hand continues. Fingers look a little less swollen today. Much better range of motion of the fingers today. She still is unable to complete full fist due to tightness from swelling in the dorsum of the hand. She is nontender on palpation of the dorsum of the hand. There is no overt erythema noted of the hand or forearm. The bite hickey on her forearm continue to look benign. She is nontender on palpation of the forearm. She still has limited range of motion of her left wrist and is tender on palpation of the left wrist at this time. No overt erythema seen. Results & Data Vital Signs (Past 12 Hours) Vital Signs Temp Pulse Resp BP Pulse Ox 04/17/19 07:08 37.1 C 97 H 18 122/77 90 04/16/19 23:30 37.9 C H 96 H 20 118/72 92 Laboratory Results Laboratory Results WBC 11.19 K/uL (4.8-10.8) H 04/17/19 06:20 RBC 3.51 M/uL (4.2-5.4) L 04/17/19 06:20 Hgb 11.1 g/dL (12.0-16.0) L 04/17/19 06:20 Hct 32.6 % (37-47) L 04/17/19 06:20 MCV 92.9 fL (80-100) 04/17/19 06:20 MCH 31.6 pg (25-34) 04/17/19 06:20 MCHC 34.0 g/dL (32-36) 04/17/19 06:20 RDW Std Deviation 44.8 fL (36.4-46.3) 04/17/19 06:20 RDW Coeff of Alisson 13.4 % (11.5-14.5) 04/17/19 06:20 Plt Count 195 K/uL (130-400) 04/17/19 06:20 MPV 9.4 fL (7.4-10.4) 04/17/19 06:20 Immature Gran % (Auto) 0.4 % 04/17/19 06:20 Neut % (Auto) 79.5 % 04/17/19 06:20 Lymph % (Auto) 9.6 % 04/17/19 06:20 Shannon % (Auto) 9.7 % 04/17/19 06:20 Eos % (Auto) 0.5 % 04/17/19 06:20 Baso % (Auto) 0.3 % 04/17/19 06:20 Immature Gran # (Auto) 0.05 K/uL (0.00-0.02) H 04/17/19 06:20 Neut # (Auto) 8.90 K/uL (1.4-6.5) H 04/17/19 06:20 Lymph # (Auto) 1.07 K/uL (1.2-3.4) L 04/17/19 06:20 Shannon # (Auto) 1.08 K/uL (0.11-0.59) H 04/17/19 06:20 Eos # (Auto) 0.06 K/uL (0-0.5) 04/17/19 06:20 Baso # (Auto) 0.03 K/uL (0-0.2) 04/17/19 06:20 ESR 80 mm/hr (0-21) H 04/15/19 21:54 PT 10.9 Seconds (9.0-12.0) 04/16/19 06:41 INR 1.1 (0.9-1.1) 04/16/19 06:41 Sodium 136 mmol/L (136-145) 04/17/19 06:20 Potassium 3.4 mmol/L (3.5-5.1) L 04/17/19 06:20 Chloride 103 mmol/L (98-107) 04/17/19 06:20 Carbon Dioxide 24 mmol/L (21-32) 04/17/19 06:20 Anion Gap 9.0 (3-11) 04/17/19 06:20 BUN 15 mg/dl (7-18) 04/17/19 06:20 Creatinine 1.15 mg/dl (0.6-1.2) 04/17/19 06:20 Est Cr Clr Drug Dosing 31.9 ml/min 04/17/19 06:20 Est GFR ( Amer) 52.8 04/17/19 06:20 Est GFR (Non-Af Amer) 45.5 04/17/19 06:20 BUN/Creatinine Ratio 13.1 (10-20) 04/17/19 06:20 Glucose 100 mg/dl (70-99) H 04/17/19 06:20 Estimat Average Glucose 120 mg/dl 04/16/19 06:41 Hemoglobin A1c 5.8 % (4.5-5.6) H 04/16/19 06:41 POC Lactic Acid Alvarez 1.33 mmol/L (0.90-1.70) 04/15/19 21:54 Calcium 8.6 mg/dl (8.5-10.1) 04/17/19 06:20 Magnesium 2.1 mg/dl (1.8-2.4) 04/15/19 21:54 Total Bilirubin 1.1 mg/dl (0.2-1) H D 04/17/19 06:20 AST 41 U/L (15-37) H 04/17/19 06:20 ALT 63 U/L (12-78) 04/17/19 06:20 Alkaline Phosphatase 137 U/L (45-117) H 04/17/19 06:20 C-Reactive Protein 16.80 mg/dl (0-0.29) H 04/15/19 21:54 Total Protein 6.9 gm/dl (6.4-8.2) 04/17/19 06:20 Albumin 2.5 gm/dl (3.4-5.0) L 04/17/19 06:20 Globulin 4.4 gm/dl (2.5-4.0) H 04/17/19 06:20 Albumin/Globulin Ratio 0.6 (0.9-2) L 04/17/19 06:20 TSH 2.440 uIu/ml (0.300-4.500) 04/15/19 21:54 Urine Color Yellow 04/15/19 Unknown Urine Appearance Clear (Clear) 04/15/19 Unknown Urine pH 5.0 (4.5-7.5) 04/15/19 Unknown Ur Specific [place] 1.014 (1.000-1.030) 04/15/19 Unknown Urine Protein Negative (Negative) 04/15/19 Unknown Urine Glucose (UA) Negative (Negative) 04/15/19 Unknown Urine Ketones Negative (Negative) 04/15/19 Unknown Urine Blood Negative (Negative) 04/15/19 Unknown Urine Nitrite Negative (Negative) 04/15/19 Unknown Urine Bilirubin Negative (Negative) 04/15/19 Unknown Urine Urobilinogen Negative (Negative) 04/15/19 Unknown Ur Leukocyte Esterase Trace (Negative) H 04/15/19 Unknown Urine WBC (Auto) 5-10 /hpf (0-5) H 04/15/19 Unknown Urine RBC (Auto) 0-4 /hpf (0-4) 04/15/19 Unknown U Hyaline Cast (Auto) 0 /lpf (0-5) 04/15/19 Unknown U Epithel Cells (Auto) 10-20 /lpf (0-5) H 04/15/19 Unknown Urine Bacteria (Auto) Negative (Negative) 04/15/19 Unknown
--- NOTE | 2019-04-17 14:11 | Hospitalist Progress Note ---
Date of Service April 17, 2019 Assessment & Plan (1) Cellulitis of hand: Cellulitis of left hand likely due to cat bite and with suspected sepsis on admission -Patient reports that the her cat had bit her on 04/19/19 and then subsequently in the next couple days, the left had with more swelling. She also reports that she had been taking amoxicillin 500 mg TID since Tuesday04/17/19 because of previously diagnosed urinary tract infection. When patient was admitted to the hospital on 04/15/19 she was initially given Zosyn in the ED and then switched to Ampicillin by admitting hospitalist medicine physician. TDAP was also given by ED provider. As per the admitting physician note there was concern for sepsis because of initial tachycardia of 116 and white blood cell count above 10,000. Patient given IV fluids. patient has been afebrile in the hospital and reports she is afebrile at home. -on exam by daytime hospitalist on 04/16/19, patient remains afebrile and hemodynamically stable. She does have left hand swelling with swelling go up the left distal ulnar/radius area. There is a small healed bite brisa where patient's cat had bit her at home in the ulnar/radius area. -Patient has mobility of her fingers and hands with some limitation fo range of motion due to the swelling. Have discussed with patient about continuing medical management with antibiotics and ice but also advised that orthopedic consult requested in case the swelling gets worse despite antibiotic and conservative measures. Patient agrees to be evaluated by orthopedics -will continue IV antibiotics as IV Ampicillin q12 hours; a recommended treatment regimen for lymphadenitis from Cat scratch disease is Azithromycin (500 mg PO on day 1, followed by 250 mg PO for four days), and started the first dose azithromycin regimen on 04/16/19 - blood cultures no growth to date -04/17/19: less swelling of the left hand today. patient has been afebrile. no chest pain. no shortness of breath. no dizziness. no lightheadedness. orthopedics order MRI of left arm and patient to be NPO however, the MRI of the left wrist will not be performed until evening time and patient wishes to eat. give patient diet. await MRI results. will place NPO after midnight in case of unusual MRI findings or orthopedic procedures Previous urinary tract infection as outpatient -urine analysis is negative, continue treatment with antibiotic of left upper extremity as above Hypertension -blood pressure stable -monitor off IV fluids -continue home dose metoprolol and amlodipine -hold off home dose losartan and replace with HCTZ 25 mg daily for now to see if some diuretic may relieve some fluid retention of the left hand as well as function as blood pressure medication -continue home dose statin acute kidney injury -creatinine downtrended with IV fluids. -will resume IV fluids at evening of 04/17/19 because expect to get MRI wrist with IV contrast Prediabetes as per patient -recent outpatient hemoglobin A1c of 5.9 last 09/2018 -HbA1c 5.8 in hospital -continue diabetic diet Alfred [phone] DVT prophylaxis. Heparin subcu Subjective less swelling of the left hand today. patient has been afebrile. no chest pain. no shortness of breath. no dizziness. no lightheadedness. orthopedics order MRI of left arm and patient to be NPO however, the MRI of the left wrist will not be performed until evening time and patient wishes to eat. give patient diet. await MRI results. will place NPO after midnight in case of unusual MRI findings or orthopedic procedures Physical Exam Constitutional: comfortable Eyes: PERRL, conjunctivae normal, anicteric sclerae EOM intact bilaterally ENMT: external ear and nose normal, oropharynx normal Neck: trachea midline, no thyromegaly Respiratory: normal respiratory effort, lungs clear to auscultation Cardiovascular: Rate/Rhythm: regular rate and regular rhythm Gastrointestinal (Abdomen): normal bowel sounds, soft, nontender, no hepatosplenomegaly Musculoskeletal: Head/Neck/Chest: normocephalic and head atraumatic less swelling of the left hand today Neurologic: PERRL, EOMI, accommodation nl, no face palsy, no dysarthria CN's II-XI intact bilaterally Psychiatric: A+Ox3, euthymic affect Results & Data Vital Signs (Past 12 Hours) Vital Signs Temp Pulse Resp BP Pulse Ox 04/17/19 07:08 37.1 C 97 H 18 122/77 90
[2019-04-17] MEDS ORDERED: SODIUM CHLORIDE 0.9% 1000ML 250 ML IV ONE (16:05)
[2019-04-17] MEDS: SODIUM CHLORIDE 0.9% 1000ML 1,000 ML IV SCH (16:45)
[2019-04-17] MEDS ORDERED: GADOBUTROL 65ML VIAL IV PRN (19:45)
[2019-04-17] MEDS ORDERED: SODIUM CHLORIDE 0.9% 1000ML 1,000 ML IV SCH (20:00)
--- NOTE | 2019-04-17 20:05 | Magnetic Resonance Report ---
MR wrist LT wo/w con CLINICAL HISTORY: Hand swelling. History of cat bite. COMPARISON STUDY: X-ray dated 04/15/2019, ultrasound dated 04/16/2019 FINDINGS: Images were acquired in the axial, sagittal and coronal planes. Images were performed befor e and after the administration of 5.5 cc of intravenous Gadavist There are no areas of marrow replacement to indicate neoplasm or acute osteomyelitis. There is prominent dorsal soft tissue edema. There are cystic changes present within the ulna. The appearance is not typical of osteomyelitis and more suggestive of an erosive arthropathy. There is a small to moderate joint effusion. There is post contrast synovial enhancement. Given the c linical history, a septic joint cannot be excluded. Joint aspiration might be considered in follow-up . There are moderate arthritic changes present within the first carpal metacarpal joint. IMPRESSION: 1. Cystic changes of the distal ulna. The appearance is not typical of osteomyelitis and more suggest reji of erosive arthropathy 2. Prominent dorsal soft tissue edema 3. Lnidi-ef-nbbtaboo joint effusion with synovial enhancement. Given the provided clinical history, a septic joint cannot be excluded. Joint aspiration might be considered in follow-up. Electronically signed by: Marcio Smiley M.D. 04/17/2019 8:04 PM
[2019-04-17] MEDS: TRAMADOL HCL 50 MG TABLET PO PRN (20:38)
[2019-04-17] MEDS: SIMVASTATIN 40 MG TAB PO SCH (20:46)
[2019-04-17] MEDS: METOPROLOL SUCC 25MG EXT REL TAB PO SCH (20:46)
[2019-04-18] MEDS: HEPARIN SOD 5,000 UNIT/0.5 ML VIAL SQ SCH ×3 (05:36→23:45)
[2019-04-18] MEDS: AMPICILLIN/SULBACTAM SOD 3,000 MG in 0.9 % SODIUM CHLORIDE 100 ML IV SCH ×4 (05:36→23:45)
[2019-04-18 07:49] LABS: Basophils # (auto) 0.02 K/uL (0-0.2); Basophils % (auto) 0.2 %; Eosinophils # (auto) 0.04 K/uL (0-0.5); Eosinophils % (auto) 0.4 %; Hematocrit (blood only) 31.1 % (37-47); Hemoglobin 10.6 g/dL (12.0-16.0); Immature Granulocytes # (auto) 0.04 K/uL (0.00-0.02); Immature Granulocytes % (auto) 0.4 %; Lymphocytes # (auto) 0.81 K/uL (1.2-3.4); Lymphocytes % (auto) 7.6 %; Mean Corpuscular Hgb Conc 34.1 g/dL (32-36); Mean Corpuscular Volume 92.3 fL (80-100); Monocytes % (auto) 12.1 %; Neutrophils % (auto) 79.3 %; Platelet Count 224 K/uL (130-400); RDW Coefficient of Variation 13.3 % (11.5-14.5); RDW Standard Deviation 44.8 fL (36.4-46.3); Red Blood Count 3.37 M/uL (4.2-5.4); White Blood Count 10.71 K/uL (4.8-10.8)
[2019-04-18] MEDS: OXYCODONE HCL IR 5 MG TAB (IMMEDIATE RELEASE) PO PRN (07:54)
[2019-04-18] MEDS: CEROVITE ADV FORMULA TAB PO SCH (07:56)
[2019-04-18] MEDS: AZITHROMYCIN 250 MG TAB PO SCH (07:56)
[2019-04-18] MEDS: SENNA 8.6 MG TAB PO SCH (07:57)
[2019-04-18] MEDS: AMLODIPINE BESYLATE 5 MG TAB PO SCH (07:58)
[2019-04-18] MEDS ORDERED: ETHYL CHLORIDE AER SPR 100 ML CAN EXT ONE (08:14)
[2019-04-18 08:16] LABS: Albumin Level 2.5 gm/dl (3.4-5.0); BUN Creatinine Ratio 14.2 (10-20); Calcium 8.4 mg/dl (8.5-10.1); Creatinine Clr Calc Pharmacy 29.8 ml/min; Est GFR (African American) 48.7; Potassium 3.4 mmol/L (3.5-5.1)
[2019-04-18 08:18] LABS: Albumin Globulin Ratio 0.6 (0.9-2); Bilirubin,Total 0.8 mg/dl (0.2-1); Globulin 4.4 gm/dl (2.5-4.0); Total Protein 6.9 gm/dl (6.4-8.2)
--- NOTE | 2019-04-18 08:53 | Orthopedic Progress Note ---
Date of Service April 18, 2019 Assessment & Plan (1) Cellulitis of hand: No real improvement with left wrist pain. MRI question of septic left wrist vs joint effusion due to arthritic nature of wrist. Plan for left wrist aspiration. Aspiration kit ordred to bedside. If purulent fluid, will need I&D. Maintain NPO status for now. Subjective Pt sitting up in bed this AM. States she has a little bit of improvement in pain overnight but not a lot. she has noticed decreased swelling in the dorsum of the hand. No other complaints. Physical Exam Physical Exam: No erythema of the hand/wrist/forearm. Less swelling in the dorsum of hand. Continues to have pain in the left wrist. Painful over the dorsum of the wrist on palpation. ROM still limited. Cap refill < 2 seconds. Sensation intact. Results & Data Vital Signs (Past 12 Hours) Vital Signs Temp Pulse Resp BP BP Pulse Ox 04/18/19 07:07 37.3 C 109 H 16 121/71 91 04/18/19 03:39 36.8 C 62 18 115/62 95 04/17/19 23:53 37.0 C 98 H 20 135/78 92 Diagnostic Findings Patient: JESUS JOYA EAdmit Date: 04/16/19 MR#: [id number]: [id number] CH[address]AK[address] MCMAHON Acct ID:[id number]: Date: 1940City Zip: [place] [address] Age: 78Location: 2W Sex: F Room/Bed: [facility] Att Phy: Roderick Padilla, MDDiagnosis: SEPSIS Mckenzie Phy: Nilesh Damian M.D.Service Date: 04/17/19 Fam Phy: Interpreting Phy: Marcio Smiley MD Admit Phy: Neftaly Pollock MD Ordering Phy: Bennie Smith PA-C cc: ~ MR wrist LT wo/w con CLINICAL HISTORY: Hand swelling. History of cat bite. COMPARISON STUDY: X-ray dated 04/15/2019, ultrasound dated 04/16/2019 FINDINGS: Images were acquired in the axial, sagittal and coronal planes. Images were performed before and after the administration of 5.5 cc of intravenous Gadavist There are no areas of marrow replacement to indicate neoplasm or acute osteomyelitis. There is prominent dorsal soft tissue edema. There are cystic changes present within the ulna. The appearance is not typical of osteomyelitis and more suggestive of an erosive arthropathy. There is a small to moderate joint effusion. There is post contrast synovial enhancement. Given the clinical history, a septic joint cannot be excluded. Joint aspiration might be considered in follow-up. There are moderate arthritic changes present within the first carpal metacarpal joint. IMPRESSION: 1. Cystic changes of the distal ulna. The appearance is not typical of osteomyelitis and more suggestive of erosive arthropathy 2. Prominent dorsal soft tissue edema 3. Yajqi-bo-[id number] joint effusion with synovial enhancement. Given the provided clinical history, a septic joint cannot be excluded. Joint aspiration might be considered in follow-up.
[2019-04-18] MEDS: TRAMADOL HCL 50 MG TABLET PO PRN ×3 (10:54→23:46)
[2019-04-18] MEDS: SODIUM CHLORIDE 0.9% 1000ML 1,000 ML IV SCH (12:12)
--- NOTE | 2019-04-18 13:35 | Orthopedic Progress Note ---
Date of Service April 18, 2019 Assessment & Plan (1) Cellulitis of hand: Patient shown improvement but MRI demonstrates joint effusion radiocarpal joint extending into midcarpal joint and distal radioulnar joint area. Is not a large effusion. I felt it was prudent to proceed with aspiration due to her infection history and rule out septic wrist. Wrist joint was sterilely prepped with Betadine alcohol dorsally and then refrigerant spray was used and an 18- gauge needle was advanced into the dorsal radiocarpal joint was able to get joint fluid out definitively with some blood-tinged joint fluid but it was not pus so no gross evidence of any infection. Small sample specimen sent for Gram stain C&S. Continue present IV antibiotics and expect some gradual improvement. Subjective Feeling somewhat better but still has some pain in her wrist and hand Review of Systems Review of Systems: No fever chills Physical Exam Physical Exam: Hand edema significantly improved still some wrist swelling and tenderness range of motion improved no erythema around forearm cat bites Results & Data Vital Signs (Past 12 Hours) Vital Signs Temp Pulse Resp BP BP Pulse Ox 04/18/19 07:07 37.3 C 109 H 16 121/71 91 04/18/19 03:39 36.8 C 62 18 115/62 95
--- NOTE | 2019-04-18 17:14 | Hospitalist Progress Note ---
Date of Service April 18, 2019 Assessment & Plan (1) Cellulitis of hand: Cellulitis of left hand secondary to cat bite. Receiving intravenous ampicillin/sulbactam and azithromycin with improvement. Orthopedics consulted. MRI demonstrated effusion of the left wrist. Aspiration of left wrist performed-results pending. (2) Cat bite: Cellulitis as discussed above. Patient received tetanus booster. (3) Hypertension: Continue metoprolol, amlodipine, hydrochlorothiazide. (4) Prediabetes: History of prediabetes. Hemoglobin A1c 5.8. Fasting blood sugar this morning = 99. (5) DVT prophylaxis: SQ heparin. Ambulate. (6) Discharge planning issues: Anticipated discharge to home. Internal Medicine follow-up with Dr. Damian. Subjective Recheck for hand cellulitis. Patient seen in their room around 1530. No fever, chills, sweats. Left hand feels better. Decreased pain and swelling. Better range of motion. MRI demonstrated joint effusion in the wrist which was aspirated earlier today by Orthopedics. Review of Systems: Constitutional- as noted above. Cardiac- no chest pain. Pulmonary- no cough or SOB. GI- no nausea, vomiting, diarrhea, melena, hematochezia. - no urinary symptoms. Otherwise, as noted above. Physical Exam Constitutional: no acute distress Respiratory: no respiratory distress Auscultation: lungs clear to auscultation bilaterally Cardiovascular: Rate/Rhythm: regular rate and regular rhythm Heart Sounds: no gallop, no murmur and no cardiac rub Vessels: no JVD Extremities: no calf tenderness and no edema Gastrointestinal (Abdomen): normal bowel sounds, soft, nontender, no hepatosplenomegaly Musculoskeletal: Extremities: + hand abnormality (edema dorsum of left hand) Skin: no rashes, warm and dry Psychiatric: Orientation: alert and oriented x 3 Results & Data Vital Signs (Past 12 Hours) Vital Signs Temp Pulse Resp BP Pulse Ox 04/18/19 14:47 36.8 C 99 H 17 114/72 89 L 04/18/19 07:07 37.3 C 109 H 16 121/71 91 Laboratory Results Laboratory Results - last 24 hr 04/18/19 04/18/19 07:11 07:11 WBC 10.71 RBC 3.37 L Hgb 10.6 L Hct 31.1 L MCV 92.3 MCH 31.5 MCHC 34.1 RDW Std Deviation 44.8 RDW Coeff of Alisson 13.3 Plt Count 224 MPV 10.0 Immature Gran % (Auto) 0.4 Neut % (Auto) 79.3 Lymph % (Auto) 7.6 Nance % (Auto) 12.1 Eos % (Auto) 0.4 Baso % (Auto) 0.2 Immature Gran # (Auto) 0.04 H Neut # (Auto) 8.50 H Lymph # (Auto) 0.81 L Nance # (Auto) 1.30 H Eos # (Auto) 0.04 Baso # (Auto) 0.02 Sodium 136 Potassium 3.4 L Chloride 102 Carbon Dioxide 24 Anion Gap 10.0 BUN 18 Creatinine 1.23 H Est Cr Clr Drug Dosing 29.8 Est GFR ( Amer) 48.7 Est GFR (Non-Af Amer) 42.0 BUN/Creatinine Ratio 14.2 Glucose 99 Calcium 8.4 L Total Bilirubin 0.8 AST 25 ALT 42 Alkaline Phosphatase 124 H Total Protein 6.9 Albumin 2.5 L Globulin 4.4 H Albumin/Globulin Ratio 0.6 L
[2019-04-18] MEDS: SIMVASTATIN 40 MG TAB PO SCH (20:13)
[2019-04-18] MEDS: METOPROLOL SUCC 25MG EXT REL TAB PO SCH (20:14)
[2019-04-18] MEDS: ACETAMINOPHEN 325 MG TAB PO PRN (20:19)
[2019-04-19] MEDS: HEPARIN SOD 5,000 UNIT/0.5 ML VIAL SQ SCH ×2 (06:38→13:22)
[2019-04-19] MEDS: AMPICILLIN/SULBACTAM SOD 3,000 MG in 0.9 % SODIUM CHLORIDE 100 ML IV SCH ×2 (06:39→11:27)
[2019-04-19 07:10] LABS: Hematocrit (blood only) 29.3 % (37-47); Hemoglobin 10.1 g/dL (12.0-16.0); Mean Corpuscular Hgb Conc 34.5 g/dL (32-36); Mean Corpuscular Volume 92.4 fL (80-100); Mean Platelet Volume 9.4 fL (7.4-10.4); Platelet Count 220 K/uL (130-400); RDW Coefficient of Variation 13.3 % (11.5-14.5); RDW Standard Deviation 45.3 fL (36.4-46.3); Red Blood Count 3.17 M/uL (4.2-5.4); White Blood Count 9.65 K/uL (4.8-10.8)
[2019-04-19 07:44] LABS: BUN Creatinine Ratio 14.2 (10-20); Calcium 7.9 mg/dl (8.5-10.1); Creatinine Clr Calc Pharmacy 32.5 ml/min; Est GFR (African American) 53.9; Est GFR (Non-African American) 46.5; Potassium 3.2 mmol/L (3.5-5.1)
[2019-04-19] MEDS: ACETAMINOPHEN 325 MG TAB PO PRN (07:45)
[2019-04-19] MEDS ORDERED: POTASSIUM CHLORIDE 20 MEQ TABCR PO ONE (09:00)
[2019-04-19] MEDS: SODIUM CHLORIDE 0.9% 1000ML 1,000 ML IV SCH (09:04)
[2019-04-19] MEDS: AMLODIPINE BESYLATE 5 MG TAB PO SCH (09:05)
[2019-04-19] MEDS: CEROVITE ADV FORMULA TAB PO SCH (09:05)
[2019-04-19] MEDS: SENNA 8.6 MG TAB PO SCH (09:09)
[2019-04-19] MEDS: AZITHROMYCIN 250 MG TAB PO SCH (09:10)
--- NOTE | 2019-04-19 09:50 | Orthopedic Progress Note ---
Date of Service April 19, 2019 Assessment & Plan (1) Cellulitis of hand: Continue antibiotics as per medicine service. Gram stain of the left wrist aspirate shows few polys and no organisms. Continue to follow cultures. Discussed the case with Dr. Montelongo this morning. He doubts infection at this time. Possibly more of an inflammatory response to the initial infection. If okay with medicine service, try short-term dose of Celebrex 200 mg p.o. twice daily. No plans for surgical debridement at this time. Subjective 1 day status post left wrist aspiration. Patient is currently ambulating around in her room this morning. He states that she continues to feel better with her left hand and wrist. No new complaints this morning. Physical Exam Physical Exam: Continues with less edema in the dorsum of the hand and fingers. No erythema of the hand wrist or forearm. Range of motion of the fingers continues to improve as does her range of motion of her left wrist. Results & Data Vital Signs (Past 12 Hours) Vital Signs Temp Pulse Resp BP Pulse Ox 04/19/19 07:34 37.6 C H 95 H 18 128/79 92 04/18/19 23:00 37.2 C 90 18 111/61 91
--- NOTE | 2019-04-19 14:52 | Hospitalist Progress Note ---
Date of Service April 19, 2019 Assessment & Plan (1) Cellulitis of hand: Cellulitis of left hand secondary to cat bite. Receiving intravenous ampicillin/sulbactam and azithromycin with improvement. Orthopedics consulted. MRI demonstrated effusion of the left wrist. Aspiration of left wrist performed; gram stain showed a few WBC's, no bacteria. Transition to oral therapy with amoxicillin / clavulanic acid to complete total of 14 days of therapy. Ortho also recommends short course of celecoxib. (2) Cat bite: Cellulitis as discussed above. Patient received tetanus booster. (3) Hypertension: Continue metoprolol, amlodipine, hydrochlorothiazide. (4) Prediabetes: History of prediabetes. Hemoglobin A1c 5.8. Fasting blood sugar this morning = 100. (5) Hypokalemia: Serum K 3.2. Takes HCTZ for hypertension. Discharge on KCl 20 mEQ daily. Recheck K in clinic. (6) DVT prophylaxis: SQ heparin. Ambulate. (7) Discharge planning issues: Anticipated discharge to home. Internal Medicine follow-up with Dr. Damian. Orthopedics follow-up with Dr. Montelongo. Subjective Recheck for cellulitis left hand due to cat bite. Hand and wrist feel better. Tmax 37.6 this morning, but no subjective fever, chills, or sweats. No nausea, vomiting, diarrhea. Physical Exam Constitutional: no acute distress Respiratory: no respiratory distress Auscultation: lungs clear to auscultation bilaterally Cardiovascular: Rate/Rhythm: regular rate and regular rhythm Heart Sounds: no gallop, no murmur and no cardiac rub Vessels: no JVD Extremities: no calf tenderness and no edema Gastrointestinal (Abdomen): normal bowel sounds, soft, nontender, no hepatosplenomegaly Musculoskeletal: Extremities: + hand abnormality (edema dorsum of left hand; no erythema) Skin: no rashes, warm and dry Psychiatric: Orientation: alert and oriented x 3 Results & Data Vital Signs (Past 12 Hours) Vital Signs Temp Pulse Resp BP Pulse Ox 04/19/19 07:34 37.6 C H 95 H 18 128/79 92 Laboratory Results 04/19/19 06:49 04/19/19 06:49
--- NOTE | 2019-04-19 14:59 | Discharge Summary ---
Date of Service Date of Admission: 04/15/19 Date of Discharge: 04/19/19 Admission HPI Per Admitting Provider History obtained from patient, family, and records. Medical history significant for hypertension, hyperlipidemia, CRI (baseline creatinine 1.3-1.4), prediabetes, osteoporosis. Few days ago patient bit on the left forearm by her pet cat. Subsequent painful swelling noted to be spreading. No chest pain, no S OB, no fever, no chills. Patient was seen at an urgent care center in [place] few days ago. No antibiotics prescribed for possible "tendinitis." Patient brought to the ER by for worsening swelling. IV Zosyn given at the emergency room. Principal Diagnosis cellulitis left hand due to cat bite Discharge Exam Constitutional no acute distress Respiratory no respiratory distress Auscultation: lungs clear to auscultation bilaterally Cardiovascular Rate/Rhythm: regular rate and regular rhythm Heart Sounds: no gallop, no murmur and no cardiac rub Vessels: no JVD Extremities: no calf tenderness and no edema Gastrointestinal (Abdomen) normal bowel sounds, soft, nontender, no hepatosplenomegaly Musculoskeletal Extremities: + hand abnormality (edema dorsum of left hand; no erythema) Skin no rashes, warm and dry Psychiatric Orientation: alert and oriented x 3 Discharge Data Allergies Allergy/AdvReac Type Severity Reaction Status Date / Time No Known Allergies Allergy Unverified 04/15/19 21:38 Consultations 04/15/19 23:43 ED Decision to Admit Stat 04/16/19 08:05 Consult Orthopedic Surgery Routine Ordered Studies 04/15/19 21:34 US venous doppler UE LT Stat 04/16/19 12:13 US extremity nonvascular Routine 04/17/19 08:26 MR wrist LT wo/w con Routine Hospital Course (1) Cellulitis of hand: Presented with cellulitis of left hand secondary to cat bite. Met criteria for sepsis per current CMS criteria (tachycardia, leukocytosis). Blood cultures obtained (and have remained negative). Received intravenous ampicillin/sulbactam and azithromycin with improvement. Orthopedics consulted. MRI demonstrated effusion of the left wrist. Aspiration of left wrist performed; gram stain showed a few WBC's, no bacteria. Transition to oral therapy with amoxicillin / clavulanic acid to complete total of 14 days of therapy. Ortho also recommends short course of celecoxib. (2) Sepsis: Met criteria for sepsis per current CMS criteria (tachycardia, leukocytosis). Blood cultures obtained. Received broad spectrum antibiotic coverage. Serum lactate < 2. Hemodynamically stable. Source = cellulitis left hand as discussed above. (3) Cat bite: Cellulitis as discussed above. Patient received tetanus booster. (4) Hypertension: Continue metoprolol, amlodipine, hydrochlorothiazide. (5) Prediabetes: History of prediabetes. Hemoglobin A1c 5.8. Fasting blood sugar this morning = 100. (6) Hypokalemia: Serum K 3.2. Takes HCTZ for hypertension. Discharge on KCl 20 mEQ daily. Recheck K in clinic. (7) DVT prophylaxis: SQ heparin. Ambulate. (8) Discharge planning issues: Anticipated discharge to home. Internal Medicine follow-up with Dr. Damian. Orthopedics follow-up with Dr. Montelongo. Total Time Total Time Spent Total Time Spent (In Minutes): 40 Discharge Plan Discharge Items Patient Disposition: Home - Self-Care Reason For Visit: cat bite with cellulitis left hand and arm Discharge Diagnosis: cat bite with cellulitis left hand and arm Condition: Good Discharge Goals: Decrease discomfort and Improve disease control Activity: Resume your previous activity Lifting: Gradually increase as tolerated Non-emergency contact: Primary Care Provider, Hospitalist and Surgeon Call non-emergency contact if: you have any medication questions, your pain is not controlled and your temperature is above 101 Follow-up/Referrals: Nilesh Damian [Primary Care Provider] - 04/24/19 11:30 am Ronaldo Montelongo MD [Surgeon] - (Please call office for appointment.) Diet: Heart Healthy Add Provider Instructions: MEDICATION CHANGES: Take amoxicillin / clavulanic acid (Augmentin) twice a day with meals for 10 days for infection. Take celecoxib (Celebrex) 100 mg twice a day with meals for 7 days for pain and inflammation. Take potassium chloride 10 mEQ twice a day for low potassium level. SUMMARY OF TEST RESULTS: Blood cultures did not show any infection in blood stream. Potassium level was low. Blood sugars were good. Hemoglobin A1C was 5.8 (very good). PENDING TEST RESULTS: Final blood culture results. RECOMMENDATIONS FOR FOLLOW-UP: Orthopedics Surgery follow-up with Dr. Montelongo. Please call his office for appointment. OTHER INSTRUCTIONS: Seek medical attention if you have: * temperature above 101 * chest pain or trouble breathing * abdominal pain, nausea, vomiting * diarrhea, dark stools or bloody stools * worsening pain, swelling, redness of hand, wrist, or arm * any unanswered questions or concerns Call 911 if symptoms are severe. Please take good care of yourself. Call if you have any questions or problems. You can reach a [facility] hospitalist on duty at [facility] 24 hours a day by calling [phone]. My cell # is [phone]. Prescriptions: New potassium chloride 10 mEq capsule, extended release 10 meq PO BID Qty: 60 RF: 5 celecoxib 100 mg capsule 100 mg PO BID Qty: 14 RF: 0 amoxicillin-pot clavulanate 875-125 mg tablet 1 tab PO BID Qty: 20 RF: 0 Continued simvastatin 40 mg tablet 40 mg PO HS RF: 0 raloxifene 60 mg tablet 60 mg PO DAILY RF: 0 metoprolol succinate 25 mg tablet extended release 24 hr 25 mg PO HS RF: 0 diphenhydramine-acetaminophen [Tylenol PM Extra Strength] 25-500 mg Tablet 1 tab PO HS PRN (Reason: Sleep) RF: 0 losartan 100 mg tablet 100 mg PO QAM RF: 0 amlodipine 5 mg tablet 5 mg PO QAM RF: 0 Calcium 600 + D(3) 600 mg calcium- 200 unit Capsule 1 cap PO QAM RF: 0 One-A-Day VitaCraves 200 mcg Tablet,Chewable 200 mcg PO QAM RF: 0 [place]-3 350 mg-235 mg- 90 mg-597 mg Capsule,Delayed Release(Dr/Ec) 1 cap PO QAM RF: 0 Discontinued amoxicillin 500 mg capsule 500 mg PO TID RF: 0 Stand-Alone Forms: My [facility] Discharge Orders: Discharge Order (Routine); Ordered 04/19/19 Ordered By: Javad Jones Admission Data Admit Date/Time: 04/16/19 00:01 Attending Provider: Javad Jones Admit Provider: Neftaly Pollock Primary Care Provider: Nilesh Damian Other Providers: Neftaly Pollock ; Arturo Gan ; Roderick Padilla Service: Medical
== END 2019-04-19 16:28 | disposition home or self-care (01) | DRG 872 ==
LOC: ED 21:22 → 2W 04-16 00:01 → SUATTDRO 04-16 00:01 → 2W 04-16 00:30
DX: A41.9 Sepsis, unspecified organism; I10 Essential (primary) hypertension; E87.6 Hypokalemia; S61.452A Open bite of left hand, initial encounter; E78.5 Hyperlipidemia, unspecified; W55.01XA Bitten by cat, initial encounter; L03.90 Cellulitis, unspecified; N17.9 Acute kidney failure, unspecified; R73.03 Prediabetes